=== PATIENT | female | born 1960 | race American Indian/Alaskan Native ===

== ENCOUNTER 2017-03-17 21:03 | Emergency (ER) | payer MEDICARE, MEDICAID ==
[2017-03-17 22:05] VITALS: BP 149/86
--- NOTE | 2017-03-18 01:10 | EDM.PDOC ---
ED HPI GENERAL MEDICAL PROBLEM - General Chief Complaint: Lower Extremity Injury/Pain Stated Complaint: L FOOT PAIN Time Seen by Provider: 03/17/17 22:35 Source of Information: Reports: Patient History Limitations: Reports: No Limitations - History of Present Illness INITIAL COMMENTS - FREE TEXT/NARRATIVE: This patient complains of pain to the left foot. It started about a month ago when she ran into a bed and sort stubbed her toe. Earlier today she was hobbling around out of the high and noticed that there was a swollen place on her left foot, look like an egg. Some of this seems to have happened after a pedicure and foot massage. Now she complains of pain and swelling mostly over the distal half of the left third and fourth metatarsals and the MCP joints of the left third and fourth toes. Pain is on the dorsum and the plantar surface. She said she isn't taking anything for pain and that she can't take ibuprofen or Tylenol due to her liver transplant and kidney problems. She's on methadone however. 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: Musculoskeletal History: Reports: Fibromyalgia, Other (See Below) Other Musculoskeletal History: chronic joint pain Neurological History: Reports: Concussion, Neuropathy, Diabetic Psychiatric History: Reports: Addiction, Anxiety, Depression, Psych Hospitalization(s), PTSD Endocrine/Metabolic History: Reports: Diabetes, Type II Hematologic History: Reports: Anemia, Blood Transfusion(s) Immunologic History: Reports: Other (See Below) Other Immunologic History: Hepatitis C Oncologic (Cancer) History: Reports: None Dermatologic History: Reports: None - Infectious Disease History Infectious Disease History: Reports: Chicken Pox, Shingles - Past Surgical History HEENT Surgical History: Reports: None Cardiovascular Surgical History: Reports: None Respiratory Surgical History: Reports: None GI Surgical History: Reports: Bariatric Procedure, Cholecystectomy, Colonoscopy , Hernia Repair/Other Female Surgical History: Reports: Section, Hysterectomy Endocrine Surgical History: Reports: None Neurological Surgical History: Reports: None Musculoskeletal Surgical History: Reports: None, Other (See Below) Other Musculoskeletal Surgeries/Procedures:: right hand surgery, pins placed Oncologic Surgical History: Reports: None Dermatological Surgical History: Reports: None Social & Family History - Tobacco Use Smoking Status *Q: Current Every Day Smoker Years of Tobacco use: 40 Packs/Tins Daily: 0.5 - Caffeine Use Caffeine Use: Reports: Coffee - Recreational Drug Use Recreational Drug Use: No Review of Systems - Review of Systems Review Of Systems: ROS reveals no pertinent complaints other than HPI. ED EXAM, GENERAL - Physical Exam Exam: See Below Exam Limited By: No Limitations General Appearance: Alert, No Apparent Distress Extremities: Other (there is tenderness to the left foot the plantar surface mostly under the metatarsophalangeal joints of the third and fourth toes there is some tenderness to the dorsum of the foot just proximal to the same joints. There is no swelling or discoloration.) Course - Vital Signs Last Recorded V/S: Last Vital Signs Temp 36.1 C 03/17/17 22:01 Pulse 83 03/17/17 22:01 Resp 20 03/17/17 22:01 BP 149/86 H 03/17/17 22:01 Pulse Ox 98 03/17/17 22:01 - Orders/Labs/Meds Orders: Active Orders 24 hr Category Date Time Status Foot Comp Min 3V Lt [CR] Stat Exams 03/17/17 22:54 Taken - Re-Assessments/Exams Free Text/Narrative Re-Assessment/Exam: 03/18/17 07:14 I suggested crutches with the patient would like to try a walking boot so actually would fit her with a walking boot and I believe she did get crutches. I recommend ice and elevation follow-up with her doctor she's not getting better in a few days. Avoid any stronger pain medications. Departure - Departure Time of Disposition: 01:05 Disposition: Home, Self-Care 01 Condition: Fair Clinical Impression: Foot pain, left - Discharge Information Instructions: Crutch Use, [id number], Foot Sprain Referrals: PCP,None [Primary Care Provider] - Forms: ED Department Discharge Additional Instructions: There appears to be inflammation in your foot in the area of the bones leading to the middle (third) toe and the fourth toe. It may be the joints that are affected as in gout or just the tendons and ligaments in that area. The most important thing right now is to avoid weightbearing as much as possible. Elevate her foot and apply ice frequently. Don't take ibuprofen or naproxen if you have been told to avoid that because of the issues with the transplant meds and your kidneys. Tylenol is metabolized in your liver so use it only if you're doctors have told you it's okay. It's okay to continue taking the methadone. So the best thing now is rest ice and elevation. See your Dr. if it's not getting better in a few days. Use the boot only if you think it helps. - My Orders Last 24 Hours: My Active Orders 03/17/17 22:54 Foot Comp Min 3V Lt [CR] Stat - Assessment/Plan Last 24 Hours: My Active Orders 03/17/17 22:54 Foot Comp Min 3V Lt [CR] Stat
--- NOTE | 2017-03-18 09:18 | CR ---
Foot Comp Min 3V Lt HISTORY: distal foot pain FINDINGS: No acute fracture or dislocation is identified. Bony architecture and joint spaces are preserved. Soft tissues are unremarkable. IMPRESSION: No acute left foot abnormality identified.
== END 2017-03-18 01:15 | disposition home or self-care (01) ==
LOC: JP.ED 21:03
DX: M79.672 Pain in left foot (principal); I10 Essential (primary) hypertension; E70.0 Classical phenylketonuria; J45.909 Unspecified asthma, uncomplicated; K21.9 Gastro-esophageal reflux disease without esophagitis; F41.9 Anxiety disorder, unspecified; F32.9 Major depressive disorder, single episode, unspecified; E11.9 Type 2 diabetes mellitus without complications; F17.210 Nicotine dependence, cigarettes, uncomplicated; Z98.49 Cataract extraction status, unspecified eye; Z90.710 Acquired absence of both cervix and uterus; Z98.890 Other specified postprocedural states; W22.8XXA Striking against or struck by other objects, initial encounter
CPT/HCPCS: 73630-26-LT; 73630-LT; 99283; 99284